=== PATIENT | female | born 1995 | race Caucasian/White ===

== ENCOUNTER 2021-04-08 20:31 | Emergency (ER) | payer MEDICAID, SELFPAY ==
[2021-04-08 20:31] VITALS: BP 133/84; PULSE 115; RESP 18; TEMP 36.8; O2SAT 96; BMI 34.7
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
[2021-04-08 22:57] LABS: Absolute Lymphocyte Count 1.96 X10^3/uL (0.83-4.51); Absolute Neutrophil Count 8.6 X10^3/uL (2.0-7.7); Basophil# 0.05 X10^3/uL; Basophil% 0.4 % (0-1); Eosinophil# 0.06 X10^3/uL; Eosinophils% 0.5 % (0-5); Hematocrit 35.3 % (37-47); Hemoglobin 11.5 g/dL (12.0-15.0); Lymphocyte # 1.96 X10^3/ul (0.83-4.51); Lymphocyte % 16.9 % (19-41); Mean Corp Hgb Conc 32.6 g/dL (32-36); Mean Corpuscular Hgb 27.4 pg (27.0-32.0); Mean Platelet Vol. 8.7 fl (6.2-12.0); Monocyte% 7.8 % (0-10); NRBC Flagged by Analyzer 0 % (0-5); Neutrophil # 8.57 X10^3/uL (2.7-7.7); Neutrophil % 74.1 % (47-70); Platelet Count 411 K/mm3 (150-450); RBC Distribution Width CV 14.3 % (11.6-14.6); RBC Distribution Width SD 44.2 fl (35.1-43.9); White Blood Count 11.6 K/mm3 (4.4-11.0)
--- NOTE | 2021-04-08 23:05 | RAD_ITS ---
STUDY: X-RAY CHEST REASON FOR EXAM: Female, 26 years old. cough TECHNIQUE: Single frontal view of the chest. COMPARISON: None. FINDINGS: The lungs are clear and expanded. There is no demonstrated pleural abnormality. Normal size heart. Normal mediastinum and abigail. Normal visualized pulmonary arteries. Normal visualized aortic arch and descending thoracic aorta. Normal visualized thoracic spine. Normal visualized ribs, clavicles, and shoulders. There is no demonstrated abnormality of the visualized soft tissue structures of the upper abdomen. RAD/Chest 1 View (Portable) IMPRESSION: Normal x-ray examination of the chest. Electronically Signed: Colin Barth MD at 23:23 EDT Tel , Service support ,
[2021-04-08 23:12] LABS: ALB/GLOB Ratio 0.8 RATIO (0.9-2.4); AST(SGOT) 12 U/L (15-37); Alanine Aminotransfer ALT/SGPT 32 U/L (13-56); Albumin, Serum 3.6 g/dL (3.2-5.0); Alkaline Phosphatase 114 U/L (45-117); Anion Gap 7 (5-15); BUN 7 mg/dL (7-18); BUN/Creat Ratio 11.2 RATIO (10-20); Calcium,Total 9.5 mg/dL (8.5-10.1); Chloride 109 mmol/L (98-107); Creatinine, Serum 0.63 mg/dL (0.55-1.02); EST Glomerular Filtration Rate 122 mL/min (>60); Est Glom Filt Rate - Afr Amer 148 mL/min (>60); Estimated Creatinine Clearance 107.03 ml/min; Globulin 4.8 g/dL (2.2-4.2); Glucose 97 mg/dL (74-106); Potassium 3.8 mmol/L (3.5-5.1); Protein, Total 8.4 g/dL (6.4-8.2); Sodium Level 141 mmol/L (136-145)
[2021-04-09 00:18] VITALS: PULSE 96; RESP 18; O2SAT 99
[2021-04-09 00:24] VITALS: BP 117/63
== END 2021-04-09 00:28 | disposition home or self-care (01) ==
LOC: ED 04-09 00:22
PROVIDERS: Emergency Provider Emergency Medicine
DX: B34.9 Viral infection, unspecified (principal); E86.0 Dehydration; Z20.822 Contact with and (suspected) exposure to COVID-19; R06.09 Other forms of dyspnea; R10.9 Unspecified abdominal pain; R11.0 Nausea; J02.9 Acute pharyngitis, unspecified; J34.89 Other specified disorders of nose and nasal sinuses; M25.50 Pain in unspecified joint; M79.10 Myalgia, unspecified site; R29.818 Other symptoms and signs involving the nervous system; E66.9 Obesity, unspecified
CPT/HCPCS: 71045; 80053; 85025; 87426; 99283; J7030

== ENCOUNTER 2021-07-23 13:46 | Emergency (ER) | payer MEDICAID, SELFPAY ==
[2021-07-23 13:47] VITALS: BP 132/74; PULSE 63; RESP 18; TEMP 35.9; O2SAT 100; BMI 32.0
--- NOTE | 2021-07-23 13:54 | RAD_ITS ---
STUDY: X-RAY CHEST REASON FOR EXAM: Female, 26 years old. COUGH TECHNIQUE: AP COMPARISON: 04/08/2021 FINDINGS: The lungs are clear and expanded. There is no demonstrated pleural abnormality. Normal size heart. Normal mediastinum and abigail. Normal visualized pulmonary arteries. Normal visualized aortic arch and descending thoracic aorta. There is a dextroscoliosis of the thoracic spine. Normal visualized ribs, clavicles, and shoulders. There is no demonstrated abnormality of the visualized soft tissue structures of the upper abdomen. RAD/Chest 1 View (Portable) IMPRESSION: Nonacute portable x-ray examination of the chest. Electronically Signed: Frank Leiva MD ([place]) at 14:22 EST , Service support ,
[2021-07-23 15:23] VITALS: BP 132/74; PULSE 63; RESP 18; TEMP 35.9; O2SAT 100
[2021-07-23 15:26] VITALS: O2SAT 96
--- NOTE | 2021-07-23 16:00 | EDS_ITS ---
HPI HPI - URI History of Present Illness Chief Complaint: Cough Informant: patient Onset/Context/Timing Onset: Weeks Context: Gradual Onset Timing: Continuous Quality: Small blood streaks Location: Sputum Worsened by: - (Nothing) Relieved by: - (Nothing) Associated Symptoms Associated Symptoms: Positive for Myalgias, Shortness of Breath, Chest Pain, Hemoptysis (Small blood streaks) and Productive Cough; Negative for Nasal Congestion, Headache, Sinus Pressure, Nausea, Vomiting and Diarrhea Narrative Narrative: Patient admits to cough with some blood streaks in her sputum. Patient states her cough has been getting worse over the past couple weeks. Patient states that she noted some blood streaks in her sputum today. Patient admits to some mild shortness of breath. Patient admits to some mild chest pain. Patient admits to generalized body aches. Patient denies any fevers or chills. Patient denies any upper respiratory congestion. Patient denies any nausea or vomiting. ROS ROS ED Constitutional Constitutional ED: Denies chills or fever(s) Eyes Eyes: Denies blurry vision or change in vision ENT ENT ED: Denies rhinorrhea or sore throat Cardiovascular Cardiovascular: Reports chest pain; Denies palpitations Respiratory/Chest Respiratory/Chest: Reports cough and dyspnea Gastrointestinal Gastrointestinal: Denies nausea or vomiting Genitourinary Genitourinary ED: Denies dysuria or hematuria Musculoskeletal Musculoskeletal: Reports back pain and myalgias Integumentary Denies abscess or rash Neurologic Neurologic: Denies headache(s) or weakness Allergic/Immunologic Allergic/Immunologic ED: Denies mouth swelling or urticaria PFSH PFS Medical History (Updated 07/23/21 @ 17:[address] Robbie Mark DO) Right sided cerebral hemisphere cerebrovascular accident Allergy/AdvReac Type Severity Reaction Status Date / Time hydrocodone AdvReac Vomiting Verified 07/23/21 13:48 naproxen AdvReac Vomiting Verified 07/23/21 13:48 Surgical History (Updated 07/23/21 @ 16:[address] Robbie Mark DO) Hx of brain surgery Social History household members: none Smoking Status: Unknown if ever smoked alcohol intake: never substance use type: does not use EXAM Physical Exam Const Vital Signs: 07/23/21 13:47 07/23/21 15:23 07/23/21 15:26 Temperature 96.6 F L 96.6 F L Temperature Source Temporal Temporal Pulse Rate 63 63 Respiratory Rate 18 18 Respiratory Effort Normal Non-Labored Respiratory Depth Normal Respiratory Pattern Normal Blood Pressure 132/74 H 132/74 H Blood Pressure Mean 93 93 Pulse Ox 100 100 Oxygen Delivery Method Room Air Room Air Room Air Positive well nourished and well developed General Appearance ED: well developed HEENT Reports moist mucous membranes Neck supple and no JVD Resp normal respiratory effort and clear to auscultation bilaterally Cardio regular rate, regular rhythm and no murmurs GI normal to inspection, nondistended, normoactive bowel sounds and non-tender Palpation: soft Extremity normal to inspection General Extremety ED: Negative for edema or tenderness General Extremity: Negative for edema Neuro oriented x3, CN's II-XII intact bilaterally and no sensory deficits noted Sensorium / Orientation: alert Motor Exam: strength 5/5 throughout Psych mental status grossly normal Skin no rashes or lesions noted MDM MDM MDM Narrative Medical decision making narrative: Portable 1 view chest x-ray was obtained. On my interpretation, lung valladares are clear. There is normal cardiac silhouette. Bony thorax is normal. There is no acute process noted. Radiologist also interpreted the x-ray and agrees. COVID-19 PCR was obtained and was negative. Patient was advised of her findings. Patient was instructed to follow-up with her primary care physician in 5 to 7 days. Patient was instructed to take honey as needed for coughing. Patient was instructed to return if worse in any way. Patient understood and was agreeable with the plan. All questions were answ ered. Lab Data Labs: Laboratory Results - last 24 hr 07/23/21 14:12 COVID-19 ([facility]) Not Detected Radiography Chest X-Ray - ED: 1 View, Read by ED Physician, Read by Radiologist and Normal Diagnostic Testing: Clinical Impression(s) from Imaging Studies Chest X-Ray 07/23/21 13:54 IMPRESSION: Nonacute portable x-ray examination of the chest. Electronically Signed: Frank Leiva MD ([place]) at 14:22 EST , Service support , Discharge Plan Triage Chief Complaint: Cough ED Provider: Schwiger,Robbie Dx/Rx/DC Orders Clinical Impression: Acute bronchitis Instructions: ED Bronchitis, No Antibiotic (Adult) Primary Care Provider: Gilmer Peña Referrals: Gilmer Peña MD [Primary Care Provider] - 5-7 Days Disposition Disposition: Home, Self Care
[2021-07-23 17:48] VITALS: PULSE 79; RESP 20; O2SAT 97
--- NOTE | 2021-07-23 17:51 | ED.RN ---
THIS NURSE REVIEWED D/C INSTRUCTIONS WITH PT. PT VERBALIZED UNDERSTANDING OF INSTRUCTIONS. PT DENIES FURTHER NEEDS OR QUESTIONS AT THIS TIME.
== END 2021-07-23 17:52 | disposition home or self-care (01) ==
PROVIDERS: Emergency Medicine; Emergency Provider Emergency Medicine; PCP Family Medicine
DX: J20.9 Acute bronchitis, unspecified (principal); R04.2 Hemoptysis; Z20.822 Contact with and (suspected) exposure to COVID-19
CPT/HCPCS: 71045; 87635; 99282; U0005; U0003

== ENCOUNTER 2021-10-02 13:27 | Emergency (ER) | payer MEDICAID, SELFPAY ==
[2021-10-02 13:29] VITALS: BP 122/71; PULSE 74; RESP 16; TEMP 35.7; O2SAT 100; BMI 34.6
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
== END 2021-10-02 15:12 | disposition home or self-care (01) ==
PROVIDERS: Emergency Provider Emergency Medicine; PCP Family Medicine; Visit Provider Emergency Medicine
DX: S70.01XA Contusion of right hip, initial encounter (principal); V43.62XA Car passenger injured in collision with other type car in traffic accident, initial encounter; Y92.410 Unspecified street and highway as the place of occurrence of the external cause; Z86.73 Personal history of transient ischemic attack (TIA), and cerebral infarction without residual deficits; Z87.891 Personal history of nicotine dependence
CPT/HCPCS: 73502; 99285

== ENCOUNTER 2022-03-15 18:50 | Emergency (ER) | payer MEDICAID, SELFPAY ==
[2022-03-15 18:51] VITALS: BP 141/79; PULSE 86; RESP 14; TEMP 36.8; O2SAT 100; BMI 33.3
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
== END 2022-03-15 19:31 | disposition home or self-care (01) ==
PROVIDERS: Emergency Provider Emergency Medicine; PCP Family Medicine; Visit Provider Emergency Medicine
DX: R29.898 Other symptoms and signs involving the musculoskeletal system (principal); R20.2 Paresthesia of skin; R53.1 Weakness; M79.606 Pain in leg, unspecified; Z79.891 Long term (current) use of opiate analgesic; Z87.891 Personal history of nicotine dependence; Z86.73 Personal history of transient ischemic attack (TIA), and cerebral infarction without residual deficits
CPT/HCPCS: 99282

== ENCOUNTER 2022-03-18 17:58 | Emergency (ER) | payer MEDICAID, SELFPAY ==
[2022-03-18 17:59] VITALS: BP 136/69; PULSE 83; RESP 15; TEMP 36.6; O2SAT 100; BMI 32.9
--- NOTE | 2022-03-18 19:20 | EDS_ITS ---
HPI History of Present Illness Chief Complaint: Lower Extremity Injury Detail of Chief Complaint: Left leg pain Informant: patient Narrative Narrative: Patient presents to the emergency department complaint left leg pain that started a month ago. Patient states that she had surgery 3 months ago for an ankle fusion. She had been doing well until she went to [place] a month ago and while walking felt a pop in her left lower extremity and since that time has had severe pain. Patient has been seen by her primary care physician and her surgeon and no etiology has been found. Patient's had x-rays and a CT scan of the leg. Patient has been on tramadol and oxycodone but really did not seem to help her pain. Patient sometimes feels a popping sensation in her leg but cannot tell what is coming from. She has history of cerebral palsy. Patient unable to bear weight on that leg now and she is been using a wheelchair. Patient is scheduled to see an orthopedic surgeon tomorrow. Patient wanted some pain relief for overnight. [facility] Medical History Right sided cerebral hemisphere cerebrovascular accident Home Medications oxycodone-acetaminophen 5 mg-325 mg tablet 1 tab PO PRN PRN Pain 03/15/22 [History Last Taken Unknown] tramadol 50 mg tablet 50 mg PO PRN PRN Pain 03/15/22 [History Last Taken Unknown] oxycodone-acetaminophen 5 mg-325 mg tablet 1 tab PO Q6H PRN PRN Pain 3 days #12 TABLETS 03/18/22 [Rx Last Taken Unknown] Allergy/AdvReac Type Severity Reaction Status Date / Time hydrocodone AdvReac Vomiting Verified 03/18/22 17:59 naproxen AdvReac Vomiting Verified 03/18/22 17:59 Surgical History H/O tubal ligation Hx of brain surgery Social History household members: none Smoking Status: Former smoker alcohol intake: never substance use type: does not use ROS ROS ED Review of Systems ROS Unobtainable: other Constitutional Constitutional ED: Reports lethargy; Denies chills, fever(s), sweats or weight loss Eyes Eyes: Denies blurry vision, change in vision or diplopia ENT ENT ED: Denies rhinorrhea or sore throat Cardiovascular Cardiovascular: Denies chest pain, orthopnea or racing heartbeat Respiratory/Chest Respiratory/Chest: Denies cough, dyspnea, dyspnea on exertion, orthopnea or sputum Gastrointestinal Gastrointestinal: Denies abdominal pain, diarrhea, nausea or vomiting Genitourinary Genitourinary ED: Denies dysuria, hematuria or urinary frequency Musculoskeletal Musculoskeletal: Reports other Details: Left leg pain ; Denies arthralgias, back pain, myalgias or neck pain Integumentary Denies abscess, Abrasions or rash Neurologic Neurologic: Denies headache(s) or weakness Psychiatric Psychiatric: Denies anxiety, depression or suicidal thoughts Endocrine Endocrinology: Denies polydipsia, polyphagia or polyuria Hematologic/Lymphatic Hematologic/Lymphatic: Denies easy bleeding, easy bruising or lymphadenopathy Allergic/Immunologic Allergic/Immunologic ED: Denies mouth swelling, tongue swelling or urticaria EXAM Physical Exam Const Vital Signs: 03/18/22 17:59 Temperature 97.8 F Temperature Source Temporal Pulse Rate 83 Respiratory Rate 15 Blood Pressure 136/69 H Blood Pressure Mean 91 Pulse Ox 100 Oxygen Delivery Method Room Air Positive well nourished and well developed General Appearance ED: well developed and NAD HEENT Reports TM's clear and moist mucous membranes normocephalic and atraumatic; Negative for trauma or tenderness Tympanic Membrane ED: Yes TM's clear Eyes PERRL and EOMs intact bilaterally General Eye ED: Negative for pale conjunctiva or scleral icterus Neck no lymphadenopathy, supple and no JVD General: Negative for tenderness Chest Wall inspection of chest normal and palpation of chest normal Chest: Negative for tenderness Resp normal respiratory effort and clear to auscultation bilaterally Effort and Inspection: Negative for respiratory distress or pain with movement Auscultation: Negative for rhonchi, wheezes or diminished lung sounds Cardio regular rate, regular rhythm, S1 normal heart sound, S2 normal heart sound and no murmurs Peripheral Pulses: pulses 2+ throughout GI normal to inspection, nondistended, normoactive bowel sounds, soft to palpation, non-tender, non-distended and no masses Back/Spine no CVA tenderness and no thoracic nor lumbar tenderness Extremity normal to inspection Extremity Narrative: Evaluation of the left lower extremity does reveal some tenderness over the anterior tibia as well as the medial calf. There is no ecchymosis or bruising. There is no erythema. No ropes or cords palpated. Patient has normal pulses throughout the extremity. General Extremety ED: Negative for edema General Extremity: Negative for edema Neuro oriented x3, CN's II-XII intact bilaterally, no sensory deficits noted and gait normal Sensorium / Orientation: awake, alert, oriented to person, oriented to place and oriented to time Motor Exam: strength 5/5 throughout and strength abnormal Psych mental status grossly normal Skin no rashes or lesions noted and no wounds MDM MDM MDM Narrative Medical decision making narrative: Patient had a venous Doppler of the left lower extremity which is negative for DVT. I did review her MyChart from the [facility] that did show the results of her CT scan of the left tib-fib with IV contrast and also the plain x-rays of the left tib-fib which essentially did not show anything concerning or significant. This point patient was medicated Dilaudid 1 mg IM and Zofran 4 mg IM. I will write her a prescription for a few oxycodone for home. She has an appointment with her orthopedic surgeon tomorrow. Patient raised the question of could this be an ACL injury or tear possibly and she is having the pain referred to the mid tibia because of her nerve damage from cerebral palsy. This point I explained that she would need a MRI of her knee to assess that further and its not something we would get out of the emergency department emergently and it would be something for her to discuss with her orthopedic surgeon tomorrow. Discharge Plan Triage Chief Complaint: Lower Extremity Injury ED Provider: Dakota Campbell Dx/Rx/DC Orders Clinical Impression: Leg pain, left Instructions: ED Pain, Acute, Uncertain Cause Prescriptions: New oxycodone-acetaminophen [oxycodone-acetaminophen] 1 TABLET tablet 1 tab PO Q6H PRN PRN (Reason: Pain) 3 Days Qty: 12 0RF No Action tramadol 50 mg tablet 50 mg PO PRN PRN (Reason: Pain) Label Comments: TAKE 1 TABLET BY MOUTH EVERY 6 HOURS NEEDED FOR PAIN oxycodone-acetaminophen 5-325 mg tablet 1 tab PO PRN PRN (Reason: Pain) Primary Care Provider: Gilmer Peña Referrals: Gilmer Peña MD [Primary Care Provider] - Activity Restrictions/Additional Instructions: See your orthopedic surgeon tomorrow Disposition Disposition: Home, Self Care
--- NOTE | 2022-03-18 19:24 | US_ITS ---
INDICATION: LT ANTERIOR CALF PAIN EXAMINATION: Ultrasound US Venous Duplex LE Unilat / Limited TECHNIQUE: Vazquez scale, pulse wave, and color flow Doppler imaging was performed of the lower extremity venous system. The left greater saphenous, common femoral, femoral, and popliteal veins were interrogated. COMPARISON: None. FINDINGS: Common femoral, superficial femoral, popliteal, posterior tibial and peroneal veins all show normal grayscale appearance without internal echoes and normal compressibility. Normal color flow and venous waveforms with augmentation demonstrated in the common femoral, superficial femoral and popliteal veins. Contralateral right common femoral vein shows normal symmetric waveform Area of concern anterior left leg shows abnormal irregular cortical bone with overlying heterogeneous shadowing echogenic area suggesting potential calcification or ossification. This may represent fracture, osteochondral lesion, heterotopic ossification or potentially neoplasm. US/Venous Duplex Imag/Limited/Uni IMPRESSION: No deep venous thrombosis left leg. Area of concern anterior left leg shows abnormal irregular cortical bone with overlying heterogeneous shadowing echogenic area suggesting potential calcification or ossification. This may represent fracture, osteochondral lesion, heterotopic ossification or potentially neoplasm. Correlation with x-rays is recommended. Multiplanar imaging may also be indicated however x-rays would still need to be obtained. Electronically Signed: Win Petit DO at 21:15 EDT ,
[2022-03-18] MEDS: Ondansetron 4 MG/2 ML Vial IM (21:09)
[2022-03-18] MEDS: HYDROmorphone 1 MG/ML Syringe IM (21:10)
[2022-03-18 21:11] VITALS: BP 134/78; PULSE 74; RESP 15; O2SAT 99
== END 2022-03-18 21:14 | disposition home or self-care (01) ==
PROVIDERS: Emergency Provider Emergency Medicine; PCP Family Medicine; Visit Provider Emergency Medicine
DX: M79.605 Pain in left leg (principal); G80.9 Cerebral palsy, unspecified; Z79.899 Other long term (current) drug therapy; Z86.73 Personal history of transient ischemic attack (TIA), and cerebral infarction without residual deficits; Z87.891 Personal history of nicotine dependence
CPT/HCPCS: 93971; 96372; 99282; J7030; J2405

== ENCOUNTER 2022-03-25 14:41 | Emergency (ER) | payer MEDICAID, SELFPAY ==
[2022-03-25 14:43] VITALS: BP 148/95; PULSE 102; RESP 16; TEMP 36.6; O2SAT 100; BMI 32.0
--- NOTE | 2022-03-25 15:25 | EDS_ITS ---
HPI History of Present Illness Chief Complaint: Shortness of Breath Narrative Narrative: 26-year-old female here with shortness of breath. The patient states she has been prescribed alendronate and has been taking this medicine inappropriately. She states she supposed be taking this medicine once weekly but has been taking it daily for the last 5 days. States some of the side effects of this medication can be dizziness, shortness of breath which she has been experiencing. Denies any chest pain. Denies any recent drug use. The patient denies recent surgery in the last 4 weeks or immobilization in the last 3 days, denies previous diagnosis of DVT or PE, hemoptysis, unilateral leg swelling or malignancy with treatment the last 6 months. No estrogen use noted. Old chart reviewed: Last ED visit on 03/18/2022 for left leg pain. DVT study at that time was negative. Prior similar symptoms: No PFSH PFSH Medical History Right sided cerebral hemisphere cerebrovascular accident Home Medications oxycodone-acetaminophen 5 mg-325 mg tablet 1 tab PO PRN PRN Pain 03/15/22 [ History Last Taken Unknown] tramadol 50 mg tablet 50 mg PO PRN PRN Pain 03/15/22 [History Last Taken Unknown] oxycodone-acetaminophen 5 mg-325 mg tablet 1 tab PO Q6H PRN PRN Pain 3 days #12 TABLETS 03/18/22 [Rx Last Taken Unknown] alendronate 70 mg tablet 70 mg PO QWEEK 03/25/22 [History Last Taken Unknown] baclofen 10 mg tablet 10 mg PO TID PRN Pain 03/25/22 [History Last Taken Unknown] methylprednisolone 4 mg tablets in a dose pack mg 03/25/22 [History Last Taken Unknown] prednisone 50 mg tablet 50 mg PO DAILY 03/25/22 [History Last Taken Unknown] pregabalin 100 mg capsule 100 mg PO BID 03/25/22 [History Last Taken Unknown] Allergy/AdvReac Type Severity Reaction Status Date / Time hydrocodone AdvReac Vomiting Verified 03/25/22 14:46 naproxen AdvReac Vomiting Verified 03/25/22 14:46 Surgical History H/O tubal ligation Hx of brain surgery Social History household members: none Smoking Status: Former smoker alcohol intake: never substance use type: does not use ROS ROS ED Eyes Eyes: Denies other visual disturbances ENT ENT ED: Denies ear pain Cardiovascular Cardiovascular: Denies chest pain, orthopnea, palpitations or paroxysmal nocturnal dyspnea Respiratory/Chest Respiratory/Chest: Reports dyspnea; Denies orthopnea, paroxysmal nocturnal dyspnea or sputum Gastrointestinal Gastrointestinal: Denies abdominal pain Genitourinary Genitourinary ED: Denies dysuria Musculoskeletal Musculoskeletal: Denies joint pain Integumentary Denies rash Neurologic Neurologic: Denies dizziness, focal weakness, numbness, syncope or weakness Psychiatric Psychiatric: Denies homicidal ideation or suicidal ideation EXAM Physical Exam Const Vital Signs: 03/25/22 14:43 03/25/22 15:07 03/25/22 17:08 Temperature 97.9 F Temperature Source Temporal Pulse Rate 102 H 79 Respiratory Rate 16 18 Respiratory Effort Normal Non-Labored Respiratory Depth Normal Respiratory Pattern Normal Blood Pressure 148/95 H 103/90 H Blood Pressure Mean 112 Pulse Ox 100 96 Oxygen Delivery Method Room Air Room Air Negative for alert or oriented x3 General Appearance ED: Negative for comfortable Orientation / Consciousness: Negative for awake HEENT Denies normocephalic Face and Sinus: Negative for face symmetric External Ear: Negative for external ears normal Mouth ED: No moist mucous membranes normal Throat: Negative for posterior oropharynx normal Eyes Negative for PERRL or EOMs intact bilaterally Neck No full ROM Carotids: other Other Details: no carotid bruits Chest Wall Negative for inspection of chest normal Resp No normal respiratory effort, No no retractions, No no use of accessory muscles and No clear to auscultation bilaterally Effort and Inspection: Negative for retractions or pain with movement Auscultation: Negative for rales, rhonchi, wheezes or diminished lung sounds Cardio Negative for no murmurs or peripheral pulses 2+ throughout GI Negative for no bruits GI Narrative: no pulsatile abdominal masses Negative for no CVA tenderness Back/Spine Cervical Spine: Negative for cervical ROM normal Extremity Negative for normal to inspection or full ROM MDM MDM MDM Narrative Medical decision making narrative: 26-year-old female here with shortness of breath, dizziness concern for medication side effect. The patient was hemodynamically stable, afebrile, nontoxic-appearing. Exam without focal cardiopulmonary abnormalities. Alendronate side effects reviewed. Called poison control, suggested supportive care. suspect GI upset, no particular monitoring period needed . EKG was obtained to rule out any evidence of electrolyte abnormalities specifically hypocalcemia which has been associated bisphosphonates. EKG showed no evidence of electrolyte abnormality or arrhythmia. Chest x-ray was obtained to rule out any focal lung pathology. Chest x-ray showed no acute process. The patient remained hemodynamically stable is appropriate for discharge home with inst ructions to take medication as prescribed. Told to return to the ED if any symptoms change or worsen. Patient expressed understanding and agreed with plan. Radiography Chest X-Ray - ED: 2 View Diagnostic Testing: Clinical Impression(s) from Imaging Studies Chest X-Ray 03/25/22 16:19 IMPRESSION: Normal x-ray examination of the chest. Electronically Signed: Gilmer Freitas MD, ANETA at 16:36 EDT , EKG Initial EKG: Comments: EKG shows normal sinus rhythm, normal axis, no obvious ST or T wave changes to suggest myocardial ischemia. Normal QT interval low suspicion for electrolyte abnormality Treatment and Re-Evaluation Narrative: Patient remained hemodynamically stable is appropriate for discharge home Discharge Plan Triage Chief Complaint: Shortness of Breath ED Provider: Bhupinder Gutiérrez Dx/Rx/DC Orders Clinical Impression: Medication side effect Prescriptions: No Action tramadol 50 mg tablet 50 mg PO PRN PRN (Reason: Pain) Label Comments: TAKE 1 TABLET BY MOUTH EVERY 6 HOURS NEEDED FOR PAIN oxycodone-acetaminophen 5-325 mg tablet 1 tab PO PRN PRN (Reason: Pain) oxycodone-acetaminophen [oxycodone-acetaminophen] 1 TABLET tablet 1 tab PO Q6H PRN PRN (Reason: Pain) 3 Days Qty: 12 0RF alendronate 70 mg tablet 70 mg PO QWEEK Label Comments: PLEASE SEE ATTACHED FOR DETAILED DIRECTIONS baclofen 10 mg tablet 10 mg PO TID PRN (Reason: Pain) Label Comments: TAKE 1 PILL BY MOUTH UP TO 3 TIMES PER DAY NEEDED FOR PAINFUL MUSCLE SPASMS prednisone 50 mg tablet 50 mg PO DAILY Label Comments: TAKE 1 TABLET BY MOUTH EVERY DAY FOR 7 DAYS methylprednisolone 4 mg tablets,dose pack Label Comments: TAKE 6 TABLETS ON DAY 1 DIRECTED ON PACKAGE AND DECREASE BY 1 TAB EACH DAY FOR A TOTAL OF 6 DAYS pregabalin 100 mg capsule 100 mg PO BID Label Comments: TAKE 1 CAPSULE BY MOUTH TWICE DAILY FOR 30 DAYS. Stand Alone Forms: ED Work / School Excuse Primary Care Provider: Gilmer Peña Referrals: Gilmer Peña MD [Primary Care Provider] - Activity Restrictions/Additional Instructions: Please take medication as prescribed. Disposition Disposition: Home, Self Care
--- NOTE | 2022-03-25 15:37 | EKG12_ITS ---
Test Reason : sob Blood Pressure : / mmHG Vent. Rate : 073 BPM Atrial Rate : 073 BPM P-R Int : 122 ms QRS Dur : 094 ms QT Int : 374 ms P-R-T Axes : 073 042 049 degrees QTc Int : 412 ms Normal sinus rhythm Low voltage QRS RSR' or QR pattern in V1 suggests right ventricular conduction delay Confirmed by JANETH COKER, JAMMIE ([id number]), tape editor MELISSA BARTLETT ([id number]) on 03/27/2022 8:06:24 AM Referred By: Brock Confirmed By:JAMMIE FOWLER MD
--- NOTE | 2022-03-25 16:19 | RAD_ITS ---
STUDY: X-RAY CHEST REASON FOR EXAM: Female, 26 years old. SOB TECHNIQUE: PA and AP and lateral COMPARISON: 07/23/2020 FINDINGS: The lungs are clear and expanded. There is no demonstrated pleural abnormality. Normal size heart. Normal mediastinum and abigail. Normal visualized pulmonary arteries. Normal visualized aortic arch and descending thoracic aorta. Normal visualized thoracic spine. Normal visualized ribs, clavicles, and shoulders. There is no demonstrated abnormality of the visualized soft tissue structures of the upper abdomen. Stable exam. RAD/Chest PA and Lateral IMPRESSION: Normal x-ray examination of the chest. Electronically Signed: Gilmer Freitas MD, ANETA at 16:36 EDT ,
[2022-03-25 17:08] VITALS: BP 103/90; PULSE 79; RESP 18; O2SAT 96
== END 2022-03-25 17:11 | disposition home or self-care (01) ==
PROVIDERS: Emergency Provider Emergency Medicine; PCP Family Medicine; Visit Provider Emergency Medicine
DX: T50.905A Adverse effect of unspecified drugs, medicaments and biological substances, initial encounter (principal); R06.00 Dyspnea, unspecified; Z87.891 Personal history of nicotine dependence
CPT/HCPCS: 71046; 93005; 99282

== ENCOUNTER 2022-04-04 12:41 | Emergency (ER) | payer MEDICAID, SELFPAY ==
[2022-04-04 12:41] VITALS: BP 123/75; PULSE 91; RESP 16; TEMP 36.7; O2SAT 100; BMI 35.4
--- NOTE | 2022-04-04 13:20 | ED.VIS.CHEST ---
HPI History of Present Illness Chief Complaint: Chest Pain Informant: patient Onset/Context/Timing Onset: Yesterday Activity at onset: sudden Timing: Continuous Quality: Positive for Burning and Heaviness Location: Left Chest Worsened By: Movement of Arm and Movement of Torso Relieved By: Nothing Associated Symptoms: Positive for Nausea, Vomiting, Dyspnea, Lightheadedness, Acid Reflux and Palpitations; Negative for Diaphoresis, Cough or Fever Narrative Narrative: Patient presents with chest pain that began last night. Patient states it began rather suddenly. Patient states her pain is over the left upper chest. Patient states it is worse with movement. Patient states nothing makes it better. Patient describes it as burning and heaviness. Patient admits to some nausea and vomiting. Patient also admits to some shortness of breath. Patient states she blacked out 4 times. Patient also admits to some palpitations. CVD Risk Factors: Negative for Hypertension, Diabetes, Hypercholesterolemia, Family History 1' </=55 or Smoking PE Risk Factors: Positive for Recent Travel/Surgery; Negative for Recent Immobilization, Prior DVT or PE or Cancer PFSH [facility] Medical History Right sided cerebral hemisphere cerebrovascular accident Home Medications alendronate 70 mg tablet 70 mg PO QWEEK 03/25/22 [History Last Taken Unknown] baclofen 10 mg tablet 10 mg PO TID PRN Pain 03/25/22 [History Last Taken Unknown] methylprednisolone 4 mg tablets in a dose pack 4 mg PO DAILY 03/25/22 [History Last Taken Unknown] prednisone 50 mg tablet 50 mg PO DAILY 03/25/22 [History Last Taken Unknown] pregabalin 100 mg capsule 100 mg PO BID 03/25/22 [History Last Taken Unknown] Allergy/AdvReac Type Severity Reaction Status Date / Time hydrocodone AdvReac Vomiting Verified 03/25/22 14:46 naproxen AdvReac Vomiting Verified 03/25/22 14:46 Surgical History H/O tubal ligation Hx of brain surgery Social History household members: none Smoking Status: Former smoker alcohol intake: never substance use type: does not use ROS ROS ED Constitutional Constitutional ED: Denies chills or fever(s) Eyes Eyes: Denies blurry vision or change in vision ENT ENT ED: Denies rhinorrhea or sore throat Cardiovascular Cardiovascular: Reports chest pain and palpitations Respiratory/Chest Respiratory/Chest: Reports dyspnea; Denies cough Gastrointestinal Gastrointestinal: Reports nausea and vomiting; Denies abdominal pain Genitourinary Genitourinary ED: Denies dysuria or hematuria Musculoskeletal Musculoskeletal: Reports back pain; Denies neck pain Integumentary Denies abscess or rash Neurologic Neurologic: Reports headache(s); Denies weakness Allergic/Immunologic Allergic/Immunologic ED: Denies mouth swelling or urticaria EXAM Physical Exam Const Vital Signs: 04/04/22 12:41 04/04/22 14:31 Temperature 98.1 F Temperature Source Temporal Pulse Rate 91 87 Respiratory Rate 16 8 L Blood Pressure 123/75 H 105/73 Blood Pressure Mean 91 83 Pulse Ox 100 100 Oxygen Delivery Method Room Air Room Air Positive well nourished, well developed and obese General Appearance ED: well developed and NAD Nutritional Appearance: obese HEENT normocephalic and atraumatic Eyes PERRL and EOMs intact bilaterally Neck supple and no JVD Chest Wall palpation of chest normal Resp normal respiratory effort and clear to auscultation bilaterally Effort and Inspection: Negative for respiratory distress Cardio regular rate, regular rhythm and no murmurs GI normal to inspection, nondistended, normoactive bowel sounds, soft to palpation, non-tender and non-distended Extremity normal to inspection General Extremety ED: Negative for edema or tenderness General Extremity: Negative for edema Neuro oriented x3, CN's II-XII intact bilaterally and no sensory deficits noted Sensorium / Orientation: awake and alert Motor Exam: strength 5/5 throughout Psych mental status grossly normal Heart Score History: Slightly/Non-Suspicious ECG: Normal Age: </= 45 years Risk Factors: No Risk Factors Troponin: </= Normal Limit Score: 0 MDM MDM MDM Narrative Medical decision making narrative: EKG was obtained. On my interpretation, it showed a normal sinus rhythm with a rate of 85. [place] interval, QRS interval, and QTc intervals were all normal. [place] was normal. There are no acute ST or T wave changes. CBC shows a slight leukocytosis of 11.2. Basic metabolic profile was essentially within normal limits. D-dimer was normal. High-sensitivity troponin was normal. PA and lateral chest x-ray was obtained. There are 2 views. On my interpretation, lung valladares are clear. There is normal cardiac silhouette. Bony thorax is normal. There is no acute process noted. Radiologist also interpreted the x-ray and agrees. Patient was advised of her findings. Patient was instructed to follow-up with her primary care physician in 5 to 7 days. Patient has a HEART score of 0. Patient was advised that this is low risk for acute cardiac event. Patient understood and was agreeable with the plan. All questions were answered. Lab Data Attestation: I reviewed the patient's lab results. Labs: Laboratory Results - last 24 hr 04/04/22 04/04/22 04/04/22 13:00 13:00 13:00 WBC 11.2 H RBC 4.39 Hgb 12.2 Hct 38.2 MCV 87.0 MCH 27.8 MCHC 31.9 L RDW Std Deviation 45.9 H RDW Coeff of Trini 14.4 Plt Count 414 MPV 10.0 Immature Gran % (Auto) 0.400 Neut % (Auto) 77.7 H Lymph % (Auto) 15.4 L [place] % (Auto) 5.2 Eos % (Auto) 0.9 Baso % (Auto) 0.4 Absolute Neuts (auto) 8.7 H Absolute Lymphs (auto) 1.73 Nucleated RBC % 0 D-Dimer Quant (PE/DVT) 0.31 Sodium 143 Potassium 3.6 Chloride 110 H Carbon Dioxide 24.0 Anion Gap 9 BUN 6 L Creatinine 0.64 Estim Creat Clear Calc 105.35 Est GFR (MDRD) Af Amer 144 Est GFR (MDRD) Non-Af 119 BUN/Creatinine Ratio 9.4 L Glucose 102 Calcium 9.4 Troponin I High Sens 3 Radiography Diagnostic Testing: Clinical Impression(s) from Imaging Studies Chest X-Ray 04/04/22 13:40 IMPRESSION: Hyperinflation. The lungs are clear. Electronically Signed: Edilbetro Tse MD at 13:54 EDT , EKG Initial EKG: Attestation: I personally reviewed and interpreted this EKG as follows: Interpretation: Sinus Rhythm and No Acute Injury Pattern Prior EKG tracings: available for review Prior: Unchanged (03/25/2022) Discharge Plan Triage Chief Complaint: Chest Pain ED Provider: Robbie Mark Dx/Rx/DC Orders Clinical Impression: Chest pain Instructions: ED Chest Pain, Uncertain Cause Prescriptions: No Action alendronate 70 mg tablet 70 mg PO QWEEK Label Comments: PLEASE SEE ATTACHED FOR DETAILED DIRECTIONS baclofen 10 mg tablet 10 mg PO TID PRN (Reason: Pain) Label Comments: TAKE 1 PILL BY MOUTH UP TO 3 TIMES PER DAY NEEDED FOR PAINFUL MUSCLE SPASMS prednisone 50 mg tablet 50 mg PO DAILY Label Comments: TAKE 1 TABLET BY MOUTH EVERY DAY FOR 7 DAYS methylprednisolone 4 mg tablets,dose pack 4 mg PO DAILY Label Comments: TAKE 6 TABLETS ON DAY 1 DIRECTED ON PACKAGE AND DECREASE BY 1 TAB EACH DAY FOR A TOTAL OF 6 DAYS pregabalin 100 mg capsule 100 mg PO BID Label Comments: TAKE 1 CAPSULE BY MOUTH TWICE DAILY FOR 30 DAYS. Primary Care Provider: Gilmer Peña Referrals: Gilmer Peña MD [Primary Care Provider] - 5-7 Days Disposition Disposition: Home, Self Care
--- NOTE | 2022-04-04 13:23 | EKG12_ITS ---
Test Reason : chest pain Blood Pressure : / mmHG Vent. Rate : 085 BPM Atrial Rate : 085 BPM P-R Int : 134 ms QRS Dur : 094 ms QT Int : 362 ms P-R-T Axes : 070 039 038 degrees QTc Int : 430 ms Normal sinus rhythm RSR' or QR pattern in V1 suggests right ventricular conduction delay Borderline ECG Confirmed by FLORY COKER, KRISTAL ([id number]), health editor MELISSA BARTLETT ([id number]) on 04/07/2022 10:54:16 AM Referred By: Confirmed By:KRISTAL RUTH MD
--- NOTE | 2022-04-04 13:40 | RAD_ITS ---
STUDY: X-RAY CHEST REASON FOR EXAM: Female, 26 years old. Chest pain. TECHNIQUE: PA and lateral views of the chest. COMPARISON: Comparison is made with prior study 03/25/2022 and 07/23/2021. FINDINGS: EKG electrodes are seen. Hyperinflation. The lungs are clear. There is no demonstrated pleural abnormality. Normal size heart. Normal mediastinum and abigail. Normal visualized pulmonary arteries. Normal visualized aortic arch and descending thoracic aorta. There is a dextroscoliosis of the thoracic spine. Normal visualized ribs, clavicles, and shoulders. There is no demonstrated abnormality of the visualized soft tissue structures of the upper abdomen. RAD/Chest PA and Lateral IMPRESSION: Hyperinflation. The lungs are clear. Electronically Signed: Edilberto Tse MD at 13:54 EDT ,
[2022-04-04 13:42] LABS: Absolute Lymphocyte Count 1.73 X10^3/uL (0.83-4.51); Absolute Neutrophil Count 8.7 X10^3/uL (2.0-7.7); Basophil# 0.05 X10^3/uL; Basophil% 0.4 % (0-1); Eosinophils% 0.9 % (0-5); Hematocrit 38.2 % (37-47); Hemoglobin 12.2 g/dL (12.0-15.0); Lymphocyte # 1.73 X10^3/ul (0.83-4.51); Lymphocyte % 15.4 % (19-41); Mean Corp Hgb Conc 31.9 g/dL (32-36); Mean Corpuscular Hgb 27.8 pg (27.0-32.0); Monocyte# 0.58 X10^3/uL; Monocyte% 5.2 % (0-10); NRBC Flagged by Analyzer 0 % (0-5); Neutrophil # 8.71 X10^3/uL (2.7-7.7); Neutrophil % 77.7 % (47-70); Platelet Count 414 K/mm3 (150-450); RBC Distribution Width CV 14.4 % (11.6-14.6); RBC Distribution Width SD 45.9 fl (35.1-43.9); Red Blood Count 4.39 M/mm3 (4.2-5.4); White Blood Count 11.2 K/mm3 (4.4-11.0)
[2022-04-04 13:55] LABS: Anion Gap 9 (5-15); BUN 6 mg/dL (7-18); BUN/Creat Ratio 9.4 RATIO (10-20); Calcium,Total 9.4 mg/dL (8.5-10.1); Chloride 110 mmol/L (98-107); Creatinine, Serum 0.64 mg/dL (0.55-1.02); D-Dimer Quantitative (DVT/PE) 0.31 FEU/ug/m (0.27-0.49); EST Glomerular Filtration Rate 119 mL/min (>60); Est Glom Filt Rate - Afr Amer 144 mL/min (>60); Estimated Creatinine Clearance 105.35 ml/min; Glucose 102 mg/dL (74-106); Potassium 3.6 mmol/L (3.5-5.1); Sodium Level 143 mmol/L (136-145); Troponin-I HS 3 pg/mL (3.0-54.0)
[2022-04-04 14:31] VITALS: BP 105/73; PULSE 87; RESP 8; O2SAT 100
== END 2022-04-04 15:05 | disposition home or self-care (01) ==
PROVIDERS: Emergency Provider Emergency Medicine; PCP Family Medicine; Visit Provider Emergency Medicine
DX: R07.9 Chest pain, unspecified (principal); R42 Dizziness and giddiness; R06.02 Shortness of breath; R00.2 Palpitations; R11.2 Nausea with vomiting, unspecified; K21.9 Gastro-esophageal reflux disease without esophagitis; Z79.899 Other long term (current) drug therapy; Z87.891 Personal history of nicotine dependence
CPT/HCPCS: 71046; 80048; 84484; 85025; 85379; 93005; 99285; A4216

== ENCOUNTER 2022-04-12 15:20 | Emergency (ER) | payer MEDICAID, SELFPAY ==
[2022-04-12 15:21] VITALS: BP 125/79; PULSE 92; RESP 16; TEMP 36.6; O2SAT 98; BMI 32.9
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
[2022-04-12 16:27] LABS: Absolute Lymphocyte Count 2.21 X10^3/uL (0.83-4.51); Absolute Neutrophil Count 5.8 X10^3/uL (2.0-7.7); Basophil# 0.04 X10^3/uL; Basophil% 0.5 % (0-1); Eosinophil# 0.09 X10^3/uL; Hematocrit 40.1 % (37-47); Hemoglobin 12.9 g/dL (12.0-15.0); Lymphocyte # 2.21 X10^3/ul (0.83-4.51); Lymphocyte % 25.2 % (19-41); Mean Corp Hgb Conc 32.2 g/dL (32-36); Mean Platelet Vol. 9.5 fl (6.2-12.0); Monocyte# 0.63 X10^3/uL; Monocyte% 7.2 % (0-10); NRBC Flagged by Analyzer 0 % (0-5); Neutrophil # 5.78 X10^3/uL (2.7-7.7); Neutrophil % 65.8 % (47-70); Platelet Count 419 K/mm3 (150-450); RBC Distribution Width CV 14.1 % (11.6-14.6); RBC Distribution Width SD 44.9 fl (35.1-43.9); Red Blood Count 4.61 M/mm3 (4.2-5.4); White Blood Count 8.8 K/mm3 (4.4-11.0)
[2022-04-12 16:39] LABS: Internal QC Validated? YES +Cl - CLEAR BKGD; Pregnancy, Serum, hCG Quali. NEGATIVE Negative
[2022-04-12 16:42] LABS: Anion Gap 8 (5-15); BUN 6 mg/dL (7-18); BUN/Creat Ratio 9.2 RATIO (10-20); Calcium,Total 9.8 mg/dL (8.5-10.1); Chloride 111 mmol/L (98-107); Creatinine, Serum 0.65 mg/dL (0.55-1.02); EST Glomerular Filtration Rate 116 mL/min (>60); Est Glom Filt Rate - Afr Amer 141 mL/min (>60); Estimated Creatinine Clearance 102.82 ml/min; Glucose 88 mg/dL (74-106); Potassium 3.1 mmol/L (3.5-5.1); Sodium Level 142 mmol/L (136-145)
[2022-04-12 16:43] VITALS: RESP 16
[2022-04-12 16:52] LABS: Amphetamine Urine VISTA NEGATIVE (<1000 ng/mL); Barbiturate Urine VISTA NEGATIVE (< 200 ng/mL); Benzodiazepine Urine VISTA NEGATIVE (< 200 ng/mL); Cocaine Urine VISTA NEGATIVE (< 300 ng/mL); Ecstacy Urine VISTA NEGATIVE (< 500 ng/mL); Methadone Urine VISTA NEGATIVE (< 300 ng/mL); PCP Urine VISTA NEGATIVE (< 25 ng/mL); THC Urine VISTA POSITIVE (< 50 ng/mL); Vista UDS pH Range 8
[2022-04-12 17:00] VITALS: BP 105/65; PULSE 83; RESP 16; O2SAT 95
--- NOTE | 2022-04-12 17:17 | ED.RN ---
CALLED [facility] TO MAKE AWARE OF PT. FAXED INFO TO THEM.
[2022-04-12 18:00] VITALS: RESP 16
--- NOTE | 2022-04-12 18:29 | NURSING ---
[facility] CALLED TO TALK WITH PATIENT.
[2022-04-12 19:00] VITALS: BP 121/78; PULSE 80; RESP 16; O2SAT 99
[2022-04-12 19:44] VITALS: BP 116/70; PULSE 87; RESP 16; O2SAT 98
== END 2022-04-12 19:48 | disposition home or self-care (01) ==
PROVIDERS: Emergency Provider Emergency Medicine; PCP Family Medicine; Visit Provider Emergency Medicine
DX: R45.851 Suicidal ideations (principal); F32.A Depression, unspecified; Z87.891 Personal history of nicotine dependence; Z91.51 Personal history of suicidal behavior
CPT/HCPCS: 36415; 80048; 80307; 82077; 84703; 85025; 87811; 99283

== ENCOUNTER 2022-05-03 18:16 | Emergency (ER) | payer MEDICAID, SELFPAY ==
[2022-05-03 18:18] VITALS: BP 131/88; PULSE 87; RESP 14; TEMP 36.1; O2SAT 98; BMI 32.0
--- NOTE | 2022-05-03 18:40 | RAD_ITS ---
STUDY: X-RAY - ABDOMEN/PELVIS REASON FOR EXAM: Female, 27 years old. Constipation. TECHNIQUE: Two AP supine views of the abdomen and pelvis. COMPARISON: None. FINDINGS: Normal visualized lung bases. There is an unremarkable bowel gas pattern. No evidence of increased feces within the colon. No small bowel dilatation. There is no demonstrated free abdominal air. The visualized liver, spleen and kidneys are grossly normal in size and morphology. No IUD is seen within the central pelvis. There are small densities throughout the pelvis of a certain etiology. Similar findings are seen in the colon. This may be radiopaque material within feces. Normal visualized osseous structures. RAD/Abdomen Single View IMPRESSION: No evidence of acute intra-abdominal or pelvic process. Electronically Signed: Sacha Paulson DO at 19:54 EDT ,
--- NOTE | 2022-05-03 18:41 | ED.VIS.GI ---
HPI HPI - GI History of Present Illness Chief Complaint: Abd Pain Detail of Chief Complaint: constipation Informant: patient Abdominal Pain/Flank Pain Onset: Days Context: Gradual Onset Timing: Intermittent Quality: Cramping Current Severity: Mild Maximum Severity: Mild Worsened by: Nothing Relieved by: Nothing Nausea/Vomiting/Emesis GI Symptom: Positive for Nausea and Vomiting Onset: Days Severity: Mild Diarrhea/Melena/Hematochezia GI Symptom: Negative for Diarrhea, Melena or Hematochezia Associated Symptoms Associated Symptoms: Negative for Dysuria, Frequency or Hematuria Narrative Narrative: 27 yo female hx of CVA w/ left sided weakness. c/o constipation for 6 days and abd cramping. No fever. No dysuria. No SBO hx. Prior similar symptoms: No Recent Illness/Hospitalization: No PFSH PFSH Medical History Right sided cerebral hemisphere cerebrovascular accident Home Medications alendronate 70 mg tablet 70 mg PO QWEEK 03/25/22 [History Last Taken Unknown] baclofen 10 mg tablet 10 mg PO TID PRN Pain 03/25/22 [History Last Taken Unknown] methylprednisolone 4 mg tablets in a dose pack 4 mg PO DAILY 03/25/22 [History Last Taken Unknown] ondansetron 4 mg disintegrating tablet 4 mg PO Q6H PRN nausea and vomiting #7 tabs 05/03/22 [Rx Last Taken Unknown] Allergy/AdvReac Type Severity Reaction Status Date / Time hydrocodone AdvReac Vomiting Verified 05/03/22 18:18 naproxen AdvReac Vomiting Verified 05/03/22 18:18 Surgical History H/O tubal ligation History of surgery on lower extremity Hx of brain surgery Social History household members: none Smoking Status: Former smoker alcohol intake: never substance use type: does not use ROS ROS ED ROS Narrative Constipation of several days. Review of Systems ROS Unobtainable: Denies due to encephalopathy Constitutional Constitutional ED: Denies chills or fever(s) ENT ENT ED: Denies ear pain Cardiovascular Cardiovascular: Denies chest pain Respiratory/Chest Respiratory/Chest: Denies cough Gastrointestinal Gastrointestinal: Reports abdominal pain, constipation, nausea and vomiting; Denies diarrhea or melena Genitourinary Genitourinary ED: Denies dysuria or hematuria Musculoskeletal Musculoskeletal: Denies arthralgias Integumentary Denies abscess Neurologic Neurologic: Denies headache(s) Psychiatric Psychiatric: Denies anxiety Endocrine Endocrinology: Denies polydipsia Hematologic/Lymphatic Hematologic/Lymphatic: Denies easy bleeding Allergic/Immunologic Allergic/Immunologic ED: Denies mouth swelling EXAM Physical Exam Narrative Exam Narrative: Well-appearing 27-year-old female. Vital signs stable afebrile. H EENT exam unremarkable. Moist Riis members. Lungs clear. Heart regular rhythm. Abdomen soft, nontender, nondistended normal bowel sounds no peritoneal signs. No signs of obstruction. She has paralysis of her left arm and a contracture. Her left lower extremity is weak also from the prior stroke and is in a brace. She is awake and alert. Answers questions follows commands. Const Vital Signs: 05/03/22 18:18 Temperature 97 F L Temperature Source Temporal Pulse Rate 87 Respiratory Rate 14 Blood Pressure 131/88 H Blood Pressure Mean 102 Pulse Ox 98 Oxygen Delivery Method Room Air Positive well nourished and well developed; Negative for obese, cachectic, contractures or unkempt General Appearance ED: well developed and NAD; Negative for unkempt, cachectic, contractures or pallor Nutritional Appearance: Negative for cachectic or obese HEENT Reports moist mucous membranes normocephalic and atraumatic; Negative for trauma Eyes PERRL and EOMs intact bilaterally General Eye ED: Negative for pale conjunctiva or scleral icterus Neck no lymphadenopathy, supple and no JVD General: Negative for tenderness Carotids: Negative for other Lymph Lymphatic: Negative for other Resp normal respiratory effort and clear to auscultation bilaterally Effort and Inspection: Negative for respiratory distress Auscultation: Negative for rales, rhonchi, wheezes or diminished lung sounds Cardio regular rate, regular rhythm, S1 normal heart sound, S2 normal heart sound and no murmurs GI non-tender, non-distended and no masses GI Narrative: Soft, NT and non-distended. Inspection: Negative for abdominal distention Auscultation: normoactive bowel sounds; Negative for hyperactive bowel sounds or hypoactive bowel sounds Palpation: soft; Negative for tender, guarding, rigid, hepatomegaly, splenomegaly, hernia or mass Extremity Negative for full ROM Extremity Narrative: Left sided weakness due to CVA Brace on left lower leg. General Extremety ED: Negative for edema or tenderness General Extremity: Negative for edema Neuro No moves all extremities Sensorium / Orientation: alert, oriented to person, oriented to place and oriented to time; Negative for orientation impaired or confused Motor Exam: strength abnormal; Negative for strength 5/5 throughout Psych mental status grossly normal and thought process normal Appearance: Negative for unkempt Attitude: No agitated Mood & Affect: Negative for depressed, anxious or tearful Skin no wounds General Skin Exam: Negative for jaundice or pallor Lesions: no lesions Rashes: no rashes Trauma: Negative for abrasion Nails: Negative for discolored MDM MDM MDM Narrative Medical decision making narrative: 27 yo with constipation. KUB will be done. Abd is benign. Soft and non-tender. Repeat exam patient doing well at 10 PM. Abdomen is completely benign. She had multiple bowel movements while here. She and I went over x-ray. She will be discharged home. She is having some mild nausea should be given 1 Zofran and a prescription sent to her pharmacy. Radiography Diagnostic Testing: Clinical Impression(s) from Imaging Studies KUB X-Ray 05/03/22 18:40 IMPRESSION: No evidence of acute intra-abdominal or pelvic process. Electronically Signed: Sacha Paulson DO at 19:54 EDT Reading Location ID and State: [address] [address] Tel [phone], Service support , KUB, single view interpreted by myself and radiologist shows no acute abnormality. No significant constipation. No obstruction. No air-fluid levels. Discharge Plan Triage Chief Complaint: Abd Pain ED Provider: Navjot Mcmullen Dx/Rx/DC Orders Clinical Impression: Constipation, History of stroke Instructions: ED Constipation (Adult) Prescriptions: New ondansetron 4 mg tablet,disintegrating 4 mg PO Q6H PRN (Reason: nausea and vomiting) Qty: 7 0RF No Action alendronate 70 mg tablet 70 mg PO QWEEK Label Comments: PLEASE SEE ATTACHED FOR DETAILED DIRECTIONS baclofen 10 mg tablet 10 mg PO TID PRN (Reason: Pain) Label Comments: TAKE 1 PILL BY MOUTH UP TO 3 TIMES PER DAY NEEDED FOR PAINFUL MUSCLE SPASMS methylprednisolone 4 mg tablets,dose pack 4 mg PO DAILY Label Comments: TAKE 6 TABLETS ON DAY 1 DIRECTED ON PACKAGE AND DECREASE BY 1 TAB EACH DAY FOR A TOTAL OF 6 DAYS Primary Care Provider: Gilmer Peña Referrals: Gilmer Peña MD [Primary Care Provider] - As Needed Activity Restrictions/Additional Instructions: Clinically you had constipation. Your x-ray is normal tonight. Plenty of fluids and rest. Plenty of fiber. Follow-up with your doctor as needed. Zofran as needed for nausea. Disposition Disposition: Home, Self Care
[2022-05-03 22:09] VITALS: BP 123/75; PULSE 79; RESP 18; O2SAT 100
[2022-05-03] MEDS: Ondansetron ODT 4 MG Tablet PO (22:09)
== END 2022-05-03 22:19 | disposition home or self-care (01) ==
PROVIDERS: Emergency Provider Emergency Medicine; PCP Family Medicine; Visit Provider Emergency Medicine
DX: K59.00 Constipation, unspecified (principal); I69.954 Hemiplegia and hemiparesis following unspecified cerebrovascular disease affecting left non-dominant side; R11.2 Nausea with vomiting, unspecified; Z87.891 Personal history of nicotine dependence
CPT/HCPCS: 74018; 99283

== ENCOUNTER 2022-09-26 11:52 | Emergency (ER) | payer MEDICAID, SELFPAY ==
[2022-09-26 11:54] VITALS: BP 121/78; PULSE 73; RESP 18; TEMP 36.1; O2SAT 100; BMI 35.9
--- NOTE | 2022-09-26 12:16 | EX.ED.GENINJ ---
HPI <JOSÉ MIGUEL Garcia - Last Filed: 09/26/22 15:50> History of Present Illness Chief Complaint: Nausea/Vomiting/Diarrhea Narrative Narrative: Patient presents today with nausea and diarrhea that she has had for the past week. She states that she has been having several bouts of diarrhea per day. She is also experiencing acid reflux each time she eats. She denies a history of GERD and states she does not take anything for reflux. She states that she has lost almost 5 pounds because every time she eats she feels a burning sensation in her throat. She has also been experiencing body aches and chills and states no one else in her household is sick. Patient also reports a burning sensation on her tongue with white material on it, states she went to urgent care yesterday and they gave her medication for thrush and tested her for flu and strep which both came back negative.. She denies any abdominal pain but states she has been having some pelvic cramping. She denies fever, hematemesis, melena, hematochezia, and urinary symptoms. Patient has a PMH of cerebral palsy and asthma. PFSH <JOSÉ MIGUEL Garcia - Last Filed: 09/26/22 15:50> [facility] Medical History Right sided cerebral hemisphere cerebrovascular accident Home Medications alendronate 70 mg tablet 70 mg PO QWEEK 03/25/22 [History Last Taken Unknown] baclofen 10 mg tablet 10 mg PO TID PRN Pain 03/25/22 [History Last Taken Unknown] methylprednisolone 4 mg tablets in a dose pack 4 mg PO DAILY 03/25/22 [History Last Taken Unknown] ondansetron 4 mg disintegrating tablet 4 mg PO Q6H PRN nausea and vomiting #7 tabs 05/03/22 [Rx Last Taken Unknown] ondansetron 4 mg disintegrating tablet 4 mg PO Q8H PRN PRN Nausea #10 tabs 09/26/22 [Rx Last Taken Unknown] pantoprazole 40 mg tablet,delayed release (Protonix) 40 mg PO DAILY #30 tabs 09/26/22 [Rx Last Taken Unknown] sucralfate 1 gram tablet (Carafate) 1 g PO BID #14 tabs 09/26/22 [Rx Last Taken Unknown] Allergy/AdvReac Type Severity Reaction Status Date / Time hydrocodone AdvReac Vomiting Verified 09/26/22 12:14 naproxen AdvReac Vomiting Verified 09/26/22 12:14 Surgical History H/O tubal ligation History of surgery on lower extremity Hx of brain surgery Social History household members: none Smoking Status: Former smoker alcohol intake: never substance use type: does not use ROS <JOSÉ MIGUEL Garcia - Last Filed: 09/26/22 15:50> ROS ED Constitutional Constitutional ED: Reports chills; Denies fever(s) or sweats Eyes Eyes: Denies blurry vision or diplopia ENT ENT ED: Denies rhinorrhea or sore throat Cardiovascular Cardiovascular: Denies chest pain or palpitations Respiratory/Chest Respiratory/Chest: Denies cough or dyspnea Gastrointestinal Gastrointestinal: Reports diarrhea, nausea and vomiting; Denies abdominal pain or constipation Genitourinary Genitourinary ED: Denies dysuria, hematuria or urinary urgency Musculoskeletal Musculoskeletal: Denies arthralgias, back pain, myalgias or neck pain Integumentary Denies abscess, Abrasions or rash Neurologic Neurologic: Denies confusion, dizziness or paresthesias Psychiatric Psychiatric: Denies anxiety, depression, suicidal ideation or suicidal thoughts EXAM <JOSÉ MIGUEL Garcia - Last Filed: 09/26/22 15:50> Physical Exam Const Vital Signs: 09/26/22 11:54 09/26/22 12:15 09/26/22 14:03 Temperature 97.0 F L Temperature Source Temporal Pulse Rate 73 71 Respiratory Rate 18 17 Respiratory Effort Normal Non-Labored Respiratory Pattern Normal Blood Pressure 121/78 H 113/54 L Blood Pressure Mean 92 73 Pulse Ox 100 100 Oxygen Delivery Method Room Air Room Air Positive well nourished, well developed and no apparent distress General Appearance ED: well developed HEENT Reports normocephalic and head/scalp atraumatic Mouth ED: Yes moist mucous membranes normal Eyes PERRL and EOMs intact bilaterally Neck full ROM and supple Chest Wall inspection of chest normal Resp normal respiratory effort and clear to auscultation bilaterally Cardio regular rate and regular rhythm GI soft to palpation, non-distended and no masses GI Narrative: Epigastric abdominal tenderness to palpation. Back/Spine normal ROM and normal to inspection Extremity normal to inspection and full ROM Neuro oriented x3, CN's II-XII intact bilaterally, moves all extremities, no focal motor deficits and no sensory deficits noted Sensorium / Orientation: awake and alert Psych mental status grossly normal and thought process normal Skin no rashes or lesions noted and no wounds <Dr. Wayne Amaya MD - Last Filed: 09/26/22 12:59> Physical Exam Const Vital Signs: 09/26/22 11:54 09/26/22 12:15 09/26/22 14:03 Temperature 97.0 F L Temperature Source Temporal Pulse Rate 73 71 Respiratory Rate 18 17 Respiratory Effort Normal Non-Labored Respiratory Pattern Normal Blood Pressure 121/78 H 113/54 L Blood Pressure Mean 92 73 Pulse Ox 100 100 Oxygen Delivery Method Room Air Room Air [facility] <JOSÉ MIGUEL Garcia - Last Filed: 09/26/22 15:50> [facility] Narrative Medical decision making narrative: Patient presenting with symptoms of gastric reflux, nausea, diarrhea, and a few episodes of vomiting that she has had for the past week. She states every time she eats she feels a burning sensation in her throat and is not on anything for reflux. She will be given Zofran, IV fluids, Protonix, and a GI cocktail. She is in no acute distress and nontoxic-appearing. Patient states that her tongue has been feeling like sandpaper is worried she has thrush. She went to urgent care yesterday where they stated they were not convinced she has thrush but did give her medication to treat anyway. I agree, it does not look like significant thrush. Labs obtained to rule out leukocytosis, anemia, electrolyte abnormality, pancreatitis, acute cystitis, and . CBC and BMP unremarkable, urine unremarkable. On reexamination patient states that she is less nauseous but is still having epigastric pain. CT scan of the abdomen and pelvis obtained to rule out abdominal etiology and no abdominal abnormality is seen. On reexamination patient states she is feeling little bit better and feels she can go home. Patient likely has GERD and will be treated with Protonix and Carafate for home. Patient may have some sort of viral illness that is causing her chills, body aches, nausea, vomiting, and diarrhea. She has been given a prescription for Zofran as well. She is to follow-up with her PCP and has been given return instructions. She will be discharged home in stable condition and is comfortable with plan. Lab Data Attestation: I reviewed the patient's lab results. Labs: Laboratory Results - last 24 hr 09/26/22 09/26/22 09/26/22 12:45 12:45 12:45 WBC 7.2 RBC 4.62 Hgb 12.0 Hct 38.5 MCV 83.3 MCH 26.0 L MCHC 31.2 L RDW Std Deviation 48.4 H RDW Coeff of Trini 16.0 H Plt Count 464 H MPV 9.2 Immature Gran % (Auto) 0.100 Neut % (Auto) 70.8 H Lymph % (Auto) 21.1 [place] % (Auto) 6.8 Eos % (Auto) 0.6 Baso % (Auto) 0.6 Absolute Neuts (auto) 5.1 Absolute Lymphs (auto) 1.51 Nucleated RBC % 0 Sodium 140 Potassium 3.7 Chloride 106 Carbon Dioxide 25.0 Anion Gap 9 BUN 11 Creatinine 0.71 Estim Creat Clear Calc 94.13 Est GFR (MDRD) Af Amer 126 Est GFR (MDRD) Non-Af 104 BUN/Creatinine Ratio 15.4 Glucose 101 Calcium 9.5 Total Bilirubin 0.30 AST 12 L ALT 19 Alkaline Phosphatase 90 Total Protein 8.2 Albumin 3.9 Globulin 4.3 H Albumin/Globulin Ratio 0.9 Lipase 112 Serum , Qual NEGATIVE Urine Color Urine Clarity Urine pH Ur Specific [place] Urine Protein Urine Glucose (UA) Urine Ketones Urine Occult Blood Urine Nitrite Urine Bilirubin Urine Urobilinogen Ur Leukocyte Esterase Urine RBC Urine WBC Ur Squamous Epith Cells Urine Bacteria Urine Mucus 09/26/22 12:50 WBC RBC Hgb Hct MCV MCH MCHC RDW Std Deviation RDW Coeff of Trini Plt Count MPV Immature Gran % (Auto) Neut % (Auto) Lymph % (Auto) [place] % (Auto) Eos % (Auto) Baso % (Auto) Absolute Neuts (auto) Absolute Lymphs (auto) Nucleated RBC % Sodium Potassium Chloride Carbon Dioxide Anion Gap BUN Creatinine Estim Creat Clear Calc Est GFR (MDRD) Af Amer Est GFR (MDRD) Non-Af BUN/Creatinine Ratio Glucose Calcium Total Bilirubin AST ALT Alkaline Phosphatase Total Protein Albumin Globulin Albumin/Globulin Ratio Lipase Serum , Qual Urine Color Yellow Urine Clarity Sl. Cloudy Urine pH 7.0 Ur Specific [place] 1.010 Urine Protein Negative Urine Glucose (UA) Normal Urine Ketones Negative Urine Occult Blood 10 H Urine Nitrite Negative Urine Bilirubin Negative Urine Urobilinogen Normal Ur Leukocyte Esterase 25 H Urine RBC 0-5 SEEN Urine WBC 0-5 SEEN Ur Squamous Epith Cells 0-5 SEEN Urine Bacteria 1+ Urine Mucus 0 SEEN Radiography Diagnostic Testing: Clinical Impression(s) from Imaging Studies Abdomen/Pelvis CT 09/26/22 14:34 IMPRESSION: Minimal increased linear markings at the left lung base suggestive of either linear atelectasis and/or scarring. IUD is seen within the uterus. Small follicles are seen in both ovaries. Electronically Signed: Edilberto Tse MD at 15:17 EST , <Dr. Wayne Amaya MD - Last Filed: 09/26/22 12:59> [facility] Lab Data Labs: Laboratory Results - last 24 hr 09/26/22 09/26/22 09/26/22 12:45 12:45 12:45 WBC 7.2 RBC 4.62 Hgb 12.0 Hct 38.5 MCV 83.3 MCH 26.0 L MCHC 31.2 L RDW Std Deviation 48.4 H RDW Coeff of Trini 16.0 H Plt Count 464 H MPV 9.2 Immature Gran % (Auto) 0.100 Neut % (Auto) 70.8 H Lymph % (Auto) 21.1 [place] % (Auto) 6.8 Eos % (Auto) 0.6 Baso % (Auto) 0.6 Absolute Neuts (auto) 5.1 Absolute Lymphs (auto) 1.51 Nucleated RBC % 0 Sodium 140 Potassium 3.7 Chloride 106 Carbon Dioxide 25.0 Anion Gap 9 BUN 11 Creatinine 0.71 Estim Creat Clear Calc 94.13 Est GFR (MDRD) Af Amer 126 Est GFR (MDRD) Non-Af 104 BUN/Creatinine Ratio 15.4 Glucose 101 Calcium 9.5 Total Bilirubin 0.30 AST 12 L ALT 19 Alkaline Phosphatase 90 Total Protein 8.2 Albumin 3.9 Globulin 4.3 H Albumin/Globulin Ratio 0.9 Lipase 112 Serum , Qual NEGATIVE Urine Color Urine Clarity Urine pH Ur Specific [place] Urine Protein Urine Glucose (UA) Urine Ketones Urine Occult Blood Urine Nitrite Urine Bilirubin Urine Urobilinogen Ur Leukocyte Esterase Urine RBC Urine WBC Ur Squamous Epith Cells Urine Bacteria Urine Mucus 09/26/22 12:50 WBC RBC Hgb Hct MCV MCH MCHC RDW Std Deviation RDW Coeff of Trini Plt Count MPV Immature Gran % (Auto) Neut % (Auto) Lymph % (Auto) [place] % (Auto) Eos % (Auto) Baso % (Auto) Absolute Neuts (auto) Absolute Lymphs (auto) Nucleated RBC % Sodium Potassium Chloride Carbon Dioxide Anion Gap BUN Creatinine Estim Creat Clear Calc Est GFR (MDRD) Af Amer Est GFR (MDRD) Non-Af BUN/Creatinine Ratio Glucose Calcium Total Bilirubin AST ALT Alkaline Phosphatase Total Protein Albumin Globulin Albumin/Globulin Ratio Lipase Serum , Qual Urine Color Yellow Urine Clarity Sl. Cloudy Urine pH 7.0 Ur Specific [place] 1.010 Urine Protein Negative Urine Glucose (UA) Normal Urine Ketones Negative Urine Occult Blood 10 H Urine Nitrite Negative Urine Bilirubin Negative Urine Urobilinogen Normal Ur Leukocyte Esterase 25 H Urine RBC 0-5 SEEN Urine WBC 0-5 SEEN Ur Squamous Epith Cells 0-5 SEEN Urine Bacteria 1+ Urine Mucus 0 SEEN Radiography Diagnostic Testing: Clinical Impression(s) from Imaging Studies Abdomen/Pelvis CT 09/26/22 14:34 IMPRESSION: Minimal increased linear markings at the left lung base suggestive of either linear atelectasis and/or scarring. IUD is seen within the uterus. Small follicles are seen in both ovaries. Electronically Signed: Edilberto Tse MD at 15:17 EST , Treatment and Re-Evaluation Narrative: I have personally performed a face to face assessment of the patient and have reviewed the JOSE Note. I performed a substantive portion of the visit including all aspects of the following. My marie findings include: History: Patient states she has been having symptoms for somewhere between 1 and 3 weeks. She thinks it might of started with some diarrhea. But then she has been having a lot of acid reflux. She has soreness in her throat when this happens. Sometimes she gets epigastric pain but not having it now. Sometimes she gets pelvic cramping. She is on Mirena control and has been for about 6 months. She denies urinary symptoms. Only abdominal surgery or C-sections. She has never had fevers. There are times that she can eat well and other times where it is hard. She was seen outpatient and was started on what sounds like nystatin vasquez for thrush. Exam: Patient awake alert no acute distress. No pallor. Mucous membranes show no significant thrush. There is some dryness though. No exudate. No pain with swallowing. Lungs are clear. Heart is regular. Abdomen is soft. There is really no tenderness or rebound or guarding. Bowel sounds are normal. No CVA tenderness. Medical Decison Making: We will do some blood work at this time. We will treat with medications as she has not been started on anything for reflux and has significant reflux symptoms. Discharge Plan Triage Chief Complaint: Nausea/Vomiting/Diarrhea Other Complaint: General Illness ED Midlevel Provider: Jenn Quintero ED Provider: Wayne Amaya Dx/Rx/DC Orders Clinical Impression: Nausea & vomiting, Diarrhea, Gastric reflux Instructions: ED Diarrhea, Unknown Cause, ED GERD (Adult) Prescriptions: New ondansetron 4 mg tablet,disintegrating 4 mg PO Q8H PRN PRN (Reason: Nausea) Qty: 10 0RF pantoprazole [Protonix] 40 mg tablet,delayed release (DR/EC) 40 mg PO DAILY Qty: 30 0RF sucralfate [Carafate] 1 gram tablet 1 g PO BID Qty: 14 0RF No Action alendronate 70 mg tablet 70 mg PO QWEEK Label Comments: PLEASE SEE ATTACHED FOR DETAILED DIRECTIONS baclofen 10 mg tablet 10 mg PO TID PRN (Reason: Pain) Label Comments: TAKE 1 PILL BY MOUTH UP TO 3 TIMES PER DAY NEEDED FOR PAINFUL MUSCLE SPASMS methylprednisolone 4 mg tablets,dose pack 4 mg PO DAILY Label Comments: TAKE 6 TABLETS ON DAY 1 DIRECTED ON PACKAGE AND DECREASE BY 1 TAB EACH DAY FOR A TOTAL OF 6 DAYS ondansetron 4 mg tablet,disintegrating 4 mg PO Q6H PRN (Reason: nausea and vomiting) Qty: 7 0RF Primary Care Provider: Gilmer Peña Referrals: Gilmer Peña MD [Primary Care Provider] - 3-5 Days Disposition Disposition: Home, Self Care
[2022-09-26 12:54] LABS: Absolute Lymphocyte Count 1.51 X10^3/uL (0.83-4.51); Absolute Neutrophil Count 5.1 X10^3/uL (2.0-7.7); Basophil# 0.04 X10^3/uL; Basophil% 0.6 % (0-1); Eosinophil# 0.04 X10^3/uL; Eosinophils% 0.6 % (0-5); Hematocrit 38.5 % (37-47); Lymphocyte # 1.51 X10^3/ul (0.83-4.51); Lymphocyte % 21.1 % (19-41); Mean Corp Hgb Conc 31.2 g/dL (32-36); Mean Corpuscular Volume 83.3 fL (81-99); Mean Platelet Vol. 9.2 fl (6.2-12.0); Monocyte# 0.49 X10^3/uL; Monocyte% 6.8 % (0-10); NRBC Flagged by Analyzer 0 % (0-5); Neutrophil # 5.08 X10^3/uL (2.7-7.7); Neutrophil % 70.8 % (47-70); Platelet Count 464 K/mm3 (150-450); RBC Distribution Width SD 48.4 fl (35.1-43.9); Red Blood Count 4.62 M/mm3 (4.2-5.4); White Blood Count 7.2 K/mm3 (4.4-11.0)
[2022-09-26 13:04] LABS: Mucous, Urine 0 SEEN /hpf (<or=2+)
[2022-09-26 13:08] LABS: ALB/GLOB Ratio 0.9 RATIO (0.9-2.4); AST(SGOT) 12 U/L (15-37); Alanine Aminotransfer ALT/SGPT 19 U/L (13-56); Albumin, Serum 3.9 g/dL (3.2-5.0); Alkaline Phosphatase 90 U/L (45-117); Anion Gap 9 (5-15); BUN 11 mg/dL (7-18); BUN/Creat Ratio 15.4 RATIO (10-20); Calcium,Total 9.5 mg/dL (8.5-10.1); Chloride 106 mmol/L (98-107); Creatinine, Serum 0.71 mg/dL (0.55-1.02); EST Glomerular Filtration Rate 104 mL/min (>60); Est Glom Filt Rate - Afr Amer 126 mL/min (>60); Estimated Creatinine Clearance 94.13 ml/min; Globulin 4.3 g/dL (2.2-4.2); Glucose 101 mg/dL (74-106); Lipase 112 U/L (73-393); Potassium 3.7 mmol/L (3.5-5.1); Protein, Total 8.2 g/dL (6.4-8.2); Sodium Level 140 mmol/L (136-145)
[2022-09-26 13:08] LABS: Color, Urine Yellow (Yellow); Glucose, Dipstick Normal (Normal); Ketone-Dipstick Negative (Negative); Leukocyte Esterase-Dipstick 25 /ul (Negative); Nitrite-Dipstick Negative (Negative); Occult Blood-Urine 10 /ul (Negative); Protein-Dipstick Negative (Negative); Urine Bilirubin Dipstick Negative (Negative); Urine Clarity Sl. Cloudy (Clear); Urine Urobilinogen Normal (Normal)
[2022-09-26] MEDS: Mag Hydrox/Al Hydrox/Simeth 30 ML UDC PO (13:13)
[2022-09-26] MEDS: 0.9% Normal Saline 1,000 ML 999 ML IV (13:13)
[2022-09-26 13:18] LABS: Red Blood Cells-Urine 0-5 SEEN /hpf (0-5); Squamous Epithelial Cells - UA 0-5 SEEN /hpf (5-10); White Blood Cells 0-5 SEEN /hpf (0-5)
[2022-09-26 13:19] LABS: Bacteria 1+ /hpf (None Seen)
[2022-09-26 13:21] LABS: Internal QC Validated? YES +Cl - CLEAR BKGD; Pregnancy, Serum, hCG Quali. NEGATIVE Negative
[2022-09-26] MEDS: Ondansetron 4 MG/2 ML Vial IV (13:22)
[2022-09-26 14:03] VITALS: BP 113/54; PULSE 71; RESP 17; O2SAT 100
--- NOTE | 2022-09-26 14:34 | CT_ITS ---
STUDY: CT ABDOMEN AND PELVIS WITH CONTRAST REASON FOR EXAM: Female, 27 years old. Epigastric tenderness, N/V/D RADIATION DOSAGE (If Supplied By Facility): CTDIvol = ( 15.20 ) mGy, DLP = ( 1028.16 ) mGycm TECHNIQUE: Transaxial images were obtained from the dome of the diaphragm to the symphysis pubis without oral contrast. IV 100mL [id number]-[id number] was administered. Sagittal and coronal images were reconstructed. Individualized dose optimization techniques were used for this CT. COMPARISON: None. FINDINGS: Minimal increased linear markings at the left lung base suggestive of either linear atelectasis and/or scarring. The visualized portions of the heart are within normal limits. Normal liver. Normal gallbladder and extrahepatic biliary system. Normal spleen. Normal pancreas. Normal bilateral adrenal glands. Normal right kidney. Normal left kidney. Normal visualized stomach. Normal small intestine. Moderate amount of fecal material is seen in the right hemicolon. The appendix is visualized and appears normal. Normal abdominal aorta. Normal inferior vena cava. Normal retroperitoneum. Normal urinary bladder. IUD is seen within the uterus. Small follicles are seen in both ovaries. Normal abdominal wall. Normal osseous structures. CT/Abdomen/Pelvis W IV Cont ONLY IMPRESSION: Minimal increased linear markings at the left lung base suggestive of either linear atelectasis and/or scarring. IUD is seen within the uterus. Small follicles are seen in both ovaries. Electronically Signed: Edilberto Tse MD at 15:17 EST ,
--- NOTE | 2022-09-26 15:46 | ED.RN ---
IV DC SITE SKIN P/W/D.
[2022-09-26 16:00] VITALS: BP 115/60; PULSE 62; RESP 17; O2SAT 99
--- NOTE | 2022-09-26 16:00 | ED.RN ---
PER DR. RODRIGUEZ PT EDUCATED TO CONTINUE HOME MEDICATION FOR THRUSH. PT EDUCATED AND VERBALIZES UNDERSTANDING.
== END 2022-09-26 16:02 | disposition home or self-care (01) ==
PROVIDERS: Physician Assistant; Emergency Provider Emergency Medicine; PCP Family Medicine; Visit Provider Emergency Medicine
DX: K21.9 Gastro-esophageal reflux disease without esophagitis (principal); Z87.891 Personal history of nicotine dependence; R19.7 Diarrhea, unspecified
CPT/HCPCS: 74177; 80053; 81001; 83690; 84703; 85025; 96361; 96374; 96375; 99284; J7030; Q9967; A4216; J2405; J3490

== ENCOUNTER 2022-10-28 13:30 | Outpatient (RCR) | payer MEDICAID, SELFPAY ==
--- NOTE | 2022-10-17 15:16 | HP.PTREVAL_ITS ---
MELISSA AGUIRRE, It has been my pleasure to treat TORI GUEVARA over the last 6 visits for abnormal gait, L tibia fracture. Please see the progress note below for an update on the physical therapy plan of care! Subjective: I tried to go back to work adn could not do it. 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 Just made her weak and tight in LE. Got sick and was going ER which limited her coming here. Tried water therapy for stress in LB. No f/u necessary with ortho. Needs to get stronger first. May be looking at knee replacement eventually. Pain 6/10 all day in LB and into left leg posteriorly. Has been to pain management doctor. Does not want pills. Was 70% better in therapy but has been worse lately without PT. Objective/Function: No major changes from day on , weak L LE, LB AROM mod limited in extension with L side discomfort, others min limited flex, SB and without pain but tight. Walks I with diminished L stance time, able to reciprocate up steps with one raisl but L leg very weak. Plan Plan: 2x/week for 4 week for pool therapy to address core, LE and UE strength and LB ROM and progress to I as pt will join as member. Balance/Gait/Functional tests - Balance/Special Test Scores Functional Gait Assessment Score: 23 % Disability: 23.3400 Lower Extremity Functional Score: 42 Goals Goal 1:: I appropriate home or gym based LE, core, postural conditioning and strengthening ex to limit future problems Goal Time Frame: 4-6 Weeks Goal Progress: still approp POOL Goal 2:: Suat and recover without difficulty to manage kids at home Goal Time Frame: 4-6 Weeks Goal Progress: appropriat Goal 3:: Stand and be on feet for 60 minutes without fatigue. Goal Time Frame: 4-6 Weeks Goal Progress: appropriate Goal 4:: 62 LEFS Goal Time Frame: 4-6 Weeks Goal Progress: appropriate Anticipated Interventions Patient/Client Instruction: Educate patient on: Condition, Plan of Care For the Purpose of:: To improve muscle performance and motor function, To increase tolerance to activity/condition/position Therapeutic Exercise to Include: Strength training, Balance training, Flexibilty training, In an aquatic setting, Passive ROM, Active ROM For the Purpose of:: To decrease pain, To improve muscle performance and motor function Please do not hesitate to contact me at [phone] by phone or if you have questions or concerns regarding this new plan of care! Sincerely, Robbie Costello, DPT, OCS, CSCS
--- NOTE | 2023-01-13 13:19 | HP.PT.NRP ---
TORI GUEVARA was seen in my office for initial evaluation on 09/02/22. The following Plan of Care was established for this patient: Initial Frequency: 2x /Week Initial Duration: 4-6 Weeks Patient/Client Instruction: Educate patient on: Condition, Plan of Care For the Purpose of:: To improve muscle performance and motor function, To increase tolerance to activity/condition/position Therapeutic Exercise to Include: Strength training, Balance training, Flexibilty training, In an aquatic setting, Passive ROM, Active ROM For the Purpose of:: To decrease pain, To improve muscle performance and motor function This patient was last seen in our office 10/28/22. Pertinent comments regarding their Physical therapy will appear below: Pt seen for 8 visits of POC. She cancelled or no showed her last 3 visits. at this point, it has been over 2 months and i will discontinue due to nonattendance. At this point I will be discontinuing this patient from physical therapy. I would be happy to see this patient again in the future if found appropriate by the physician. Thank you! Robbie Costello, DPT, OCS, CSCS Balance/Gait/Functional tests - Balance/Special Test Scores Functional Gait Assessment Score: 23 % Disability: 23.3400 Lower Extremity Functional Score: 42
== END 2022-10-28 19:00 | disposition home or self-care (01) ==
LOC: PT 13:30
PROVIDERS: PCP Family Medicine
DX: S82.209D Unspecified fracture of shaft of unspecified tibia, subsequent encounter for closed fracture with routine healing (principal); R26.9 Unspecified abnormalities of gait and mobility
CPT/HCPCS: 97110; 97113; 97162; 97164

== ENCOUNTER 2022-10-28 14:24 | Emergency (ER) | payer MEDICAID, SELFPAY ==
[2022-10-28 14:25] VITALS: BP 121/94; PULSE 67; RESP 18; TEMP 35.7; O2SAT 100
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
== END 2022-10-28 15:36 | disposition home or self-care (01) ==
PROVIDERS: Emergency Provider Emergency Medicine; PCP Family Medicine; Visit Provider Emergency Medicine
DX: M54.9 Dorsalgia, unspecified (principal); D57.00 Hb-SS disease with crisis, unspecified; R55 Syncope and collapse; Z87.891 Personal history of nicotine dependence; R20.2 Paresthesia of skin; S82.209D Unspecified fracture of shaft of unspecified tibia, subsequent encounter for closed fracture with routine healing; R26.9 Unspecified abnormalities of gait and mobility; X58.XXXD Exposure to other specified factors, subsequent encounter
CPT/HCPCS: 97113; 99284